=== PATIENT | female | born 1960 | race Two or more races ===

== ENCOUNTER 2025-07-21 12:09 | Outpatient (CLI) | payer OTHER, MEDICAID ==
[2025-07-21] MEDS ORDERED: methylPREDNISolone ACETATE 80 MG/ML VL ONE (13:12)
[2025-07-21] MEDS ORDERED: BUPIVACAINE HCL 0.25% P/F 10 ML VIAL ONE (13:12)
[2025-07-21] MEDS ORDERED: IOHEXOL 300 MG/ML 100ML BOTTLE IJ ONE (13:13)
[2025-07-21] MEDS ORDERED: LIDOCAINE 2%HCL (LOCAL ANESTH.) INJ 10ml MDV ONE (13:13)
--- NOTE | 2025-07-21 14:40 | DVH ---
US US GUIDANCE FOR NEEDLE PLACEME HISTORY: STEROID INJECTION COMPARISON: None PROCEDURE: The risks and benefits of the procedure including infection, hemorrhage and technical failure were discussed with the patient, who agreed to proceed. The patient was positioned supine on the fluoroscopy table. Time out was performed. The right knee joint was localized using US, and the location on the skin for needle insertion was marked. The region was prepped and draped using routine sterile technique. Approximately 2 cc of lidocaine was injected for local anesthesia. A 22 gauge spinal needle was inserted, and intra-articular location was confirmed by US. 1 cc of methylprednisolone (80 mg/cc) and 4 cc of Bupivacaine (0.25%) and 5 cc of 2% Lidocaine was then injected without complication. The patient was informed of the temporary precautions to take following the procedure as well as of the potential signs and symptoms which may indicate the need to contact physician, and expressed understanding of this discussion. IMPRESSION: Steroid and anesthetic injection of the right knee joint.
== END 2025-07-21 17:00 | disposition home or self-care (01) ==
LOC: XYW 12:09
PROVIDERS: ATTEND Radiology Diagnostic Radiology
DX: M25.561 Pain in right knee (principal)
CPT/HCPCS: 20611; J1010; J2003; J3490; Q9967; 20610; 76942